=== PATIENT | male | born 1995 | race Caucasian/White ===

== ENCOUNTER 2025-06-25 08:32 | Emergency (ER) | payer BC, SELFPAY ==
[2025-06-25 08:40] VITALS: BP 144/106; PULSE 107; O2SAT 99; BMI 46.1
--- NOTE | 2025-06-25 12:58 | ED_ITS ---
HPI HPI - General Adult General Chief complaint: Eye Problems Stated complaint: R EYE IRRITATION Time Seen by Provider: 06/25/25 08:39 Source: patient Mode of arrival: walk-in History of Present Illness HPI narrative: Patient is a 30-year-old male presenting to the emergency department for evaluation of above right right eye. Patient states he was seen at an outside hospital 4 days ago. He states that the right eye was red and painful, he was given ofloxacin eyedrops. He has been using the eyedrops however his symptoms seem to have gotten worse. He now states that over the last 24 hours there is involvement of the right upper eyelid. Other than the now involve the eyelid, he denies any other associated symptoms. He denies significant ocular pain, no pain with eye movements, no loss of vision, no floaters/photophobia/flashes of light, no headaches, no nausea, no vomiting, no change in hearing/taste/smell. He denies history of trauma. He is otherwise healthy with no chronic medical conditions. Related Data Home Medications ?Medication ?Instructions ?Recorded ?Confirmed ofloxacin 0.3 % eye drops drp 06/25/25 Previous Rx's ?Medication ?Instructions ?Recorded amoxicillin 875 mg-potassium 1 tab PO BID 5 days #10 t abs 06/25/25 clavulanate 125 mg tablet erythromycin 5 mg/gram (0.5 %) eye 1 applic ophthalmic (eye) BID #3.5 06/25/25 ointment grams Allergies Allergy/AdvReac Type Severity Reaction Status Date / Time No Known Drug Allergies Allergy Verified 06/25/25 08:42 Review of Systems ROS Status of ROS 10 or more systems reviewed and unremark able except as noted in history and below PFSH PFSH Social History Little interest or pleasure in doing things: not at all Feeling down, depressed, or hopeless: not at all Exam Narrative Exam Narrative: CONSTITUTIONAL: Well-appearing, answering questions and following commands appropriately SKIN: Was warm and dry. EYES: The right upper eyelid is erythematous and mildly edematous. There is no crepitus or purulent drainage from the eyelid. There is no periorbital edema or evidence of periorbital cellulitis. There is mild to moderate scleral injection on the right. PERRLA. EOMI. Visual acuity intact. EARS, NOSE, THROAT: Moist oral mucosa. RESPIRATORY: Nonlabored respirations without audible wheezing or stridor. CARDIOVASCULAR: Normal rate and regular rhythm. There is no S3, S4, murmur, rub. GASTROINTESTINAL: Abdomen is nondistended. MUSCULOSKELETAL: No peripheral edema. NEUROLOGIC: Patient is awake and alert. Facies were symmetrical. Constitutional Vital Signs, click to edit/add: Last Vital Signs Pulse 107 H 06/25/25 08:40 Resp 20 06/25/25 08:40 BP 144/106 H 06/25/25 08:40 Pulse Ox 99 06/25/25 08:40 Course Vital Signs Vital signs: Vital Signs Pulse Rate 107 H 06/25/25 08:40 Respiratory Rate 20 06/25/25 08:40 Blood Pressure 144/106 H 06/25/25 08:40 Pulse Oximetry 99 06/25/25 08:40 Pulse Rate 107 H 06/25/25 08:40 Respiratory Rate 20 06/25/25 08:40 Blood Pressure 144/106 H 06/25/25 08:40 Pulse Oximetry 99 06/25/25 08:40 Medical Decision Making [facility] Narrative Medical decision making narrative: Patient is a 30-year-old male presenting to the emergency department with a 4- day history of right eye redness, which is now involving the right upper eyelid over the last 24 hours. His triage vital signs were significant for tachycar oumar, though this resolved on my exam. He is afebrile and hemodynamically stable. Patient's history and physical examination is consistent with right-sided blepharitis, conjunctivitis. No evidence of periorbital cellulitis. He is overall well-appearing and has normal visual acuity. I do believe the patient is stable for discharge and outpatient follow up with ophthalmology. He was given information for the ophthalmology clinic and instructed to follow-up as soon as possible. Return precautions were given including any new or worsening symptoms. They were given a prescription for erythromycin eye ointment and an oral Augmentin. Patient understands and agrees to the plan. FINAL IMPRESSION: #Acute right-sided blepharitis DISPOSITION: Discharged home CONDITION: Good Discharge Plan Discharge Chief Complaint: Eye Problems Clinical Impression: Blepharitis of eyelid of right eye Patient Disposition: Home, Self-Care Time of Disposition Decision: 09:03 Condition: Good Mode of Transportation: Private Vehicle Prescriptions / Home Meds: New amoxicillin-pot clavulanate 875-125 mg tablet 1 tab PO BID 5 Days Qty: 10 0RF erythromycin 5 mg/gram (0.5 %) ointment 1 applic ophthalmic (eye) BID Qty: 3.5 0RF No Action ofloxacin 0.3 % drops Print Language: [place] Instructions: Blepharitis (ED) Referrals: [facility] [Other, Opthalmology] - As soon as possible Clinical Impression: Blepharitis of eyelid of right eye Discharge Date/Time: 06/25/25 09:28
== END 2025-06-25 09:28 | disposition home or self-care (01) ==
PROVIDERS: Emergency Provider Student in an Organized Health Care Education/Training Program; PCP Family Medicine
DX: H01.001 Unspecified blepharitis right upper eyelid (principal)
CPT/HCPCS: 99283